=== PATIENT | female | born 1995 | race Caucasian/White ===

== ENCOUNTER 2024-11-14 18:37 | Emergency (ER) | payer OTHER, SELFPAY ==
[2024-11-14 18:42] VITALS: BP 124/79; PULSE 88; RESP 18; TEMP 37; O2SAT 100; BMI 20.5
--- NOTE | 2024-11-14 20:25 | ED.ABDPAIN ---
HPI - Abdominal Pain General Chief Complaint: Abdominal Pain Stated Complaint: Pain in breast Time Seen by Provider: 11/14/24 20:10 History of Present Illness HPI narrative: This 29-year-old female comes in reporting worsening upper epigastric pain. She states that she has had this pain here and there in the past and did benefit from IV omeprazole when in [place]. She has taken oral omeprazole but not consistently and stated that she took 1 tablet recently and it did not help. She reports upper epigastric pain that radiates up into her chest. It seems to come and go. Sometimes it is very severe and other times there is no pain. She does not report any vomiting, diarrhea, fever, or other symptoms. She is otherwise in good health. She arrives here with normal vital signs. Related Data Home Medications ?Medication ?Instructions ?Recorded ?Confirmed omeprazole 20 mg capsule,delayed 20 mg PO DAILY 11/14/24 11/14/24 release Previous Rx's ?Medication ?Instructions ?Recorded pantoprazole 40 mg tablet,delayed 40 mg PO DAILY #20 tabs 11/14/24 release (Protonix) Allergies Allergy/AdvReac Type Severity Reaction Status Date / Time No Known Drug Allergies Allergy Verified 11/14/24 18:53 Review of Systems Status of ROS Reports: 10 or more systems reviewed and unremarkable except as noted in History and below Narrative Constitutional: No fevers, no weight gain or loss. Eyes: No discharge. No vision changes. HENT: No congestion, no sore throat, no ear pain. Cardiovascular: No chest pain, no palpitations. Respiratory: No shortness of breath, no wheezes, no cough. Gastrointestinal: No vomiting, no diarrhea. Upper epigastric abdominal pain that radiates up into the chest. Genitourinary: No dysuria, no hematuria. Musculoskeletal: Normal range of motion. Skin: No rashes, no pruritis. Neurological: No dizziness, weakness, sensory change, speech change. Endo/Heme/Allergies: No bruising or bleeding. No polydipsia. Pysch: no suicidality, no anxiety, no insomnia. All other systems reviewed and are negative. Exam Narrative: Exam Narrative: Constitutional: Well-developed, well-nourished, no acute distress. HEENT: Normocephalic, atraumatic. Neck: Normal range of motion. Nontender. Supple. Heart: Regular. No murmurs. Normal rate. Intact distal pulses. Lungs: Clear to auscultation. No chest discomfort. No wheezes, rhonchi, or rales. Abdomen: Normal bowel sounds. Nontender. No rebound tenderness. Genitalia: Deferred. Back: No midline tenderness. Normal range of motion. Extremities: Normal range of motion. No injury. Skin: Intact. No rash. Warm. No erythema or pallor. Neurologic: No altered sensation. No weakness. Alert and oriented. Psychiatric: No suicidality. No anxiety or depression. No insomnia. Nursing notes and vitals signs are reviewed. Const: Vital Signs, click to edit/add: Vital Signs - 24 hr 11/14/24 18:42 Temperature 98.6 F Pulse Rate [Right Pulse Oximeter] 88 Respiratory Rate 18 Blood Pressure [Ri ght Upper Arm] 124/79 Pulse Oximetry 100 Oxygen Delivery Me thod Room Air Course Vital Signs Vital signs: Initial Vital Signs Temperature 98.6 F 11/14/24 18:42 Temperature Source Temporal Artery Scan 11/14/24 18:42 Pulse Rate 88 11/14/24 18:42 Pulse Rhythm Regular 11/14/24 18:42 Pulse Strength 3+ Normal 11/14/24 18:42 Respiratory Rate 18 11/14/24 18:42 Blood Pressure 124/79 11/14/24 18:42 Blood Pressure Mean 94 11/14/24 18:42 Blood Pressure Position Sitting 11/14/24 18:42 Pulse Oximetry 100 11/14/24 18:42 Oxygen Delivery Method Room Air 11/14/24 18:42 Vital Signs Temperature 98.6 F 11/14/24 18:42 Pulse Rate 88 11/14/24 18:42 Respiratory Rate 18 11/14/24 18:42 Blood Pressure 124/79 11/14/24 18:42 Pulse Oximetry 100 11/14/24 18:42 Oxygen Delivery Method Room Air 11/14/24 18:42 Temperature 98.6 F 11/14/24 18:42 Pulse Rate 88 11/14/24 18:42 Respiratory Rate 18 11/14/24 18:42 Blood Pressure 124/79 11/14/24 18:42 Pulse Oximetry 100 11/14/24 18:42 Oxygen Delivery Method Room Air 11/14/24 18:42 Medications Administered Medications: Discontinued Medications Generic Name Dose Route Start Last Admin Trade Name Freq PRN Reason Stop Dose Admin Lidocaine/Aluminum/Magnesium/Simeth 30 ml 11/14/24 20:24 11/14/24 20:35 Gi Cocktail (Visc Lido/Antacid) 30 Ml PO 11/14/24 20:25 30 ml ONCE ONE Administration MDM - Abdominal Pain MDM Narrative Medical decision making narrative: This patient comes in with upper abdominal pain that is typical of a gastritis or reflux esophagitis. She has benefited from omeprazole in the past but has not taken it recently except for a tablet here and there. She received a GI cocktail here. This brought great relief to her symptoms. She is okay to be discharged home. I did provide a prescription for Protonix. ECG Data Attestation: I personally reviewed and interpreted this ECG as follows: Interpretation: Normal sinus rhythm. Rate is 83 beats per minute. There are no ST or T-wave abnormalities. Discharge Plan Discharge Clinical Impression: GERD (gastroesophageal reflux disease) Patient Disposition: Home, Self-Care Condition: Improved Additional Instructions: Take medication as prescribed. Follow up with MD or return if worsening. Prescriptions: New pantoprazole [Protonix] 40 mg tablet,delayed release (DR/EC) 40 mg PO DAILY Qty: 20 2RF No Action omeprazole 20 mg capsule,delayed release(DR/EC) 20 mg PO DAILY Stand Alone Forms: [employer] ([employer] Info Instructions
[2024-11-14] MEDS: GI COCKTAIL (VISC LIDO/ANTACID) 30 ML PO (20:35)
== END 2024-11-14 21:21 | disposition home or self-care (01) ==
PROVIDERS: Emergency Provider Emergency Medicine Emergency Medical Services
DX: K21.9 Gastro-esophageal reflux disease without esophagitis (principal)
CPT/HCPCS: 99283; 99284; A9270

== ENCOUNTER 2025-07-13 22:15 | Day surgery (SDC) | payer OTHER, SELFPAY ==
[2025-07-13 22:43] VITALS: BP 127/81; PULSE 75; RESP 18; TEMP 36.7; O2SAT 99; BMI 23.3
[2025-07-13 23:01] LABS: Appearance Urine Clear (Clear); Hematocrit* 43.6 % (33.0-51.0); Hemoglobin* 14.2 gm/dL (12.0-16.0); Immature Granulocytes Pct Auto 1.4 %; Mean Corpuscular HGB Conc 33 gm/dL (32-36); Mean Corpuscular Hemoglobin 28 pg (26-34); Mean Corpuscular Volume 87 fL (80-100); RDW Coefficient of Variation % 12.4 % (11.5-15.5); Red Blood Count* 5.00 m/uL (4.00-5.20); White Blood Count* 14.79 K/uL (4.50-11.00)
[2025-07-13 23:06] LABS: Immature Granulocytes Abs Auto 0.20 K/uL (0.00-0.30); Lymphocytes Absolute Auto 3.60 K/uL (0.90-2.90); Slide Review Reflex No
[2025-07-13 23:15] VITALS: O2SAT 99
[2025-07-13 23:20] LABS: Albumin* 4.7 g/dL (3.3-5.0); Chloride* 103 mmol/L (96-114); Potassium* 4.2 mmol/L (3.6-5.1); Sodium* 139 mmol/L (135-149)
[2025-07-13 23:22] LABS: Blood Urea Nitrogen* 14 mg/dL (5-24); Creatinine* 0.7 mg/dL (0.5-1.5); Est. Creatinine Clearance* 115.32; Estimated Glomerular Filt Rate 120 ml/min
[2025-07-13 23:23] LABS: Alanine Aminotransferase* 26 U/L (4-35); Alkaline Phosphatase* 77 U/L (40-150); Anion Gap 7 mEq/L (7-15); Aspartate Amino Transferase* 30 U/L (12-35); Bilirubin Total* 0.3 mg/dL (0.1-1.5); Calcium* 9.5 mg/dL (8.4-10.6); Carbon Dioxide* 29 mmol/L (20-32); Glucose* 110 mg/dL (60-115); HCG Qualitative Serum* Negative (Negative); Total Protein* 8.9 g/dL (6.0-8.3)
--- NOTE | 2025-07-13 23:32 | ED.ABDPAIN ---
HPI - Abdominal Pain General Time Seen by Provider: 23:32 Date Seen: 07/13/25 Chief Complaint: Abdominal Pain Stated Complaint: intense stomach pain Time Seen by Provider: 07/13/25 23:32 Source: patient and waste elimination Mode of arrival: ambulatory Limitations: language barrier History of Present Illness HPI narrative: Santi is a 30-year-old female who presents the emergency department for evaluation of abdominal pain. Patient complains of right upper and mid upper abdominal pain that has been constant since Monday morning. Patient describes the pain as a constant burning pain however reports worsening intensity over the last 4 hours. Patient reports nausea but no vomiting. Denies any fever, chills, chest pain, shortness of breath. Patient denies any diarrhea, dysuria. Patient reports history of similar symptoms in the past. Patient took 1 dose of pantoprazole with no improvement of symptoms, patient has history of appendectomy, section x2. Related Data Home Medications ?Medication ?Instructions ?Recorded ?Confirmed omeprazole 20 mg capsule,delayed 20 mg PO DAILY 11/14/24 07/13/25 release Allergies Allergy/AdvReac Type Severity Reaction Status Date / Time No Known Drug Allergies Allergy Verified 07/13/25 22:45 Review of Systems Narrative Past medical history, past surgical history, medications, allergies, family history, and social history were reviewed with the patient. No additional pertinent items. A medically appropriate review of systems was performed with pertinent positives and negatives noted in HPI, all other systems negative. [facility] Medical History (Updated 07/14/25 @ 02:23 by Radha Galan MD) Gastritis ?K29.70 - Gastritis, unspecified, without bleeding (ICD-10) Social History Smoking Status: Never smoker Second hand tobacco smoke exposure: No How often do you have a drink containing alcohol: never AUDIT-C Alcohol total score: 0 Non-prescribed substance use: denies use Exam Narrative: Exam Narrative: General: Afebrile, in distress secondary to pain HEENT: Normocephalic, atraumatic, conjunctiva normal. MMM Neck: non-tender, supple Cardio: regular rate. regular rhythm Resp: Normal work of breathing, no respiratory distress, lungs clear bilaterally, no wheezing, rhonchi, rales Chest/Back: no visual signs of trauma, no midline tenderness, no CVA tenderness Abdomen: soft, non distension, tenderness to palpation right upper quadrant, epigastric region with no rebound, no guarding,no peritoneal signs Neuro: alert and fully oriented. CN II-XII grossly intact. Grossly normal strength and sensation in all extremities. MSK: no deformities. Normal range of motion Integumentary/Skin: no rash visualized, normal color Psych: normal affect, normal behavior Const: Vital Signs, click to edit/add: Vital Signs - 24 hr 07/13/25 22:43 07/13/25 23:15 07/14/25 00:22 Temperature 98.1 F 98.1 F Pulse Rate Pulse Rate [Right Pulse Oximeter] 75 85 Respiratory Rate 18 18 Blood Pressure Blood Pressure [Ri ght Upper Arm] 127/81 112/76 Pulse Oximetry 99 99 99 Oxygen Delivery Me thod Room Air Room Air 07/14/25 02:00 Temperature 98.5 F Pulse Rate 95 Pulse Rate [Right Pulse Oximeter] Respiratory Rate 20 Blood Pressure 115/74 Blood Pressure [Ri ght Upper Arm] Pulse Oximetry 99 Oxygen Delivery Me thod Course Vital Signs Vital signs: Initial Vital Signs Temperature 98.1 F 07/13/25 22:43 Temperature Source Temporal Artery Scan 07/13/25 22:43 Pulse Rate 75 07/13/25 22:43 Respiratory Rate 18 07/13/25 22:43 Blood Pressure 127/81 07/13/25 22:43 Blood Pressure Mean 96 07/13/25 22:43 Blood Pressure Position Sitting 07/13/25 22:43 Pulse Oximetry 99 07/13/25 22:43 Oxygen Delivery Method Room Air 07/13/25 22:43 Vital Signs Temperature 98.1 F 07/13/25 22:43 Pulse Rate 75 07/13/25 22:43 Respiratory Rate 18 07/13/25 22:43 Blood Pressure 127/81 07/13/25 22:43 Pulse Oximetry 99 07/13/25 22:43 Oxygen Delivery Method Room Air 07/13/25 22:43 Temperature 98.5 F 07/14/25 03:14 Pulse Rate 85 07/14/25 03:14 Respiratory Rate 20 07/14/25 03:14 Blood Pressure 112/76 07/14/25 03:14 Pulse Oximetry 99 07/14/25 02:00 Oxygen Delivery Method Room Air 07/14/25 00:22 Medications Administered Medications: Discontinued Medications Generic Name Dose Route Start Last Admin Trade Name Freq PRN Reason Stop Dose Admin Piperacillin Sod/Tazobactam 100 mls @ 200 mls/hr 07/14/25 02:09 07/14/25 02:31 Sod 4.5 gm/ Sodium Chloride IVPB 07/14/25 02:10 200 mls/hr ONCE ONE Administration Sodium Chloride 1,000 mls @ 125 mls/hr 07/14/25 02:15 07/14/25 02:25 0.9 % Sodium Chloride 1000 Ml IV 125 mls/hr .Q8H ELVI Administration Lidocaine/Aluminum/Magnesium/Simeth 30 ml 07/14/25 00:15 07/14/25 00:19 Gi Cocktail (Visc Lido/Antacid) 30 Ml PO 07/14/25 00:16 30 ml ONCE ONE Administration MDM - Abdominal Pain MDM Narrative Medical decision making narrative: Santi is a 30-year-old female who presents the emergency department for evaluation of abdominal pain. upon arrival patient is nontoxic appearing, afebrile, in distress secondary to pain. Patient hemodynamically stable vital signs within normal limits. Differential diagnosis includes but is not limited to gastritis versus gastroenteritis versus pancreatitis versus cholecystitis versus biliary colic versus colitis among others. Patient reports history of appendectomy and section x2. Upon arrival patient was treated with GI cocktail, comprehensive labs performed. I reviewed comprehensive labs which are remarkable for leukocytosis with white blood cell count of 14.7, hemoglobin 14.2, no acute metabolic or electrolyte abnormality, no significant transaminitis, normal bilirubin, normal lipase, negative test, urinalysis with no evidence of acute infection. Given patient's leukocytosis as well as right upper quadrant/ epigastric pain right upper quadrant ultrasound performed. I personally reviewed and interpreted right upper quadrant ultrasound which demonstrates cholelithiasis with findings suspicious for acute cholecystitis with gallbladder wall thickening, trace pericholecystic fluid. On re-evaluation patient does report improvement of symptoms after GI cocktail however still is tender to palpation in epigastric region or right upper quadrant. Given patient's abdominal pain, leukocytosis, ultrasound findings I discussed patient management general surgeon Dr. Butterfield who agrees with admission to Medicine for laparoscopic cholecystectomy later today. Patient made NPO, maintenance IV fluids, Zosyn. I discussed patient management with hospitalist who agrees with admission. Patient understands and agrees the plan. Medical Records Attestation: I reviewed the patient's medical records. Lab Data Attestation: I reviewed the patient's lab results. Labs: Lab Results 07/13/25 Range/Units 22:58 WBC 14.79 H (4.50-11.00) K/uL RBC 5.00 (4.00-5.20) m/uL Hgb 14.2 (12.0-16.0) gm/dL Hct 43.6 (33.0-51.0) % MCV 87 (80-100) fL MCH 28 (26-34) pg MCHC 33 (32-36) gm/dL RDW Coeff of Vikash 12.4 (11.5-15.5) % Plt Count 287 (140-440) K/uL Neut % (Auto) 66.8 (42.0-72.0) % Lymph % (Auto) 24.6 (20-44) % [place] % (Auto) 5.7 (0.0-11.0) % Eos % (Auto) 1.2 (0.0-7.0) % Baso % (Auto) 0.3 (0.0-3.0) % Neut # (Auto) 9.90 H (1.7-7.0) K/uL Lymph # (Auto) 3.60 H (0.90-2.90) K/uL [place] # (Auto) 0.80 (0.00-0.90) K/UL Eos # (Auto) 0.20 (0.00-0.50) K/uL Baso # (Auto) 0.00 (0.00-0.30) K/uL Abs Immat Gran (auto) 0.20 (0.00-0.30) K/uL Imm/Tot Granulo (auto) 1.4 % Sodium 139 (135-149) mmol/L Potassium 4.2 (3.6-5.1) mmol/L Chloride 103 (96-114) mmol/L Carbon Dioxide 29 (20-32) mmol/L Anion Gap 7 (7-15) mEq/L BUN 14 (5-24) mg/dL Creatinine 0.7 (0.5-1.5) mg/dL Estimated Creat Clear 115.32 Estimated GFR 120 ml/min Glucose 110 (60-115) mg/dL Calcium 9.5 (8.4-10.6) mg/dL Total Bilirubin 0.3 (0.1-1.5) mg/dL AST 30 (12-35) U/L ALT 26 (4-35) U/L Alkaline Phosphatase 77 (40-150) U/L Total Protein 8.9 H (6.0-8.3) g/dL Albumin 4.7 (3.3-5.0) g/dL Lipase 150 (23-300) U/L HCG, Qual Negative (Negative) Urine Color Yellow (Yellow) Urine Appearance Clear (Clear) Urine pH 6.0 (5.0-8.5) Ur Specific [place] 1.025 (1.000-1.030) Urine Protein Negative (Negative) Urine Glucose (UA) Negative (Negative) Urine Ketones Negative (Negative) Urine Blood Negative (Negative) Urine Nitrite Negative (Negative) Urine Bilirubin Negative (Negative) Urine Urobilinogen 0.2 (0.2-1.0) Ur Leukocyte Esterase Negative (Negative) Urine RBC 0-2 (0-2) Urine WBC 0-2 (0-5) Ur Squamous Epith Cells None (None-Few) Urine Bacteria None (None) Imaging Data US - abdomen: Attestation: I have reviewed the pertinent imaging results. Radiologist's impression: Patient: Santi Dodson MR#: [id number] : 1995 Acct:[id number] Lc: ED Service Date: 07/14/[address]: Ordering Physician: Radha Galan M.D. Date of Service: 07/14/25 Procedure(s): US gallbladder Accession Number(s): [id number] cc: Radha Galan M.D.; Provider,Not a Local~ For Patients: As a result of the Century Cures Act, medical imaging exams and procedure reports are released immediately into your electronic medical record. You may view this report before your referring provider. If you have questions, please contact your health care provider. INDICATION: Right upper quadrant and epigastric abdomen pain. TECHNIQUE: Ultrasound abdomen limited. Sonographic images of the right upper quadrant were obtained using wilcox-scale and color Doppler images. COMPARISON: None. FINDINGS: Liver: Visualized portions grossly within normal limits. Gallbladder: Multiple gallstones noted. Gallbladder wall thickening, measuring 5 mm with trace pericholecystic fluid. Negative sonographic Crow`s sign. Common bile duct: 6 mm. IMPRESSION: Cholelithiasis with findings suspicious for acute cholecystitis including gallbladder wall thickening and trace pericholecystic fluid. Dictated by Devan Rangel MD @ 07/14/2025 1:49:48 AM Discharge Plan Discharge Clinical Impression: Acute cholecystitis Patient Disposition: Admitted As Observation Condition: Stable
[2025-07-14] VITALS (19 sets, daily range): BP systolic 110–127; BP diastolic 63–83; PULSE 56–99; RESP 12–24; TEMP 36.4–37.1; O2SAT 94–100
--- NOTE | 2025-07-14 00:15 | CRLHL7_ITS ---
For Patients: As a result of the Century Cures Act, medical imaging exams and procedure reports are released immediately into your electronic medical record. You may view this report before your referring provider. If you have questions, please contact your health care provider. INDICATION: Right upper quadrant and epigastric abdomen pain. TECHNIQUE: Ultrasound abdomen limited. Sonographic images of the right upper quadrant were obtained using wilcox-scale and color Doppler images. COMPARISON: None. FINDINGS: Liver: Visualized portions grossly within normal limits. Gallbladder: Multiple gallstones noted. Gallbladder wall thickening, measuring 5 mm with trace pericholecystic fluid. Negative sonographic Crow`s sign. Common bile duct: 6 mm. IMPRESSION: Cholelithiasis with findings suspicious for acute cholecystitis including gallbladder wall thickening and trace pericholecystic fluid. Dictated by Devan Rangel MD @ 07/14/2025 1:49:48 AM (Electronically Signed)
[2025-07-14] MEDS: GI COCKTAIL (VISC LIDO/ANTACID) 30 ML PO (00:19)
[2025-07-14] MEDS: PIPERACILLIN/TAZOBACTAM 4.5 GM in 0.9 % SODIUM CHLORIDE Mini-bag 100 ML IVPB ×2 (02:31→09:58)
--- NOTE | 2025-07-14 03:27 | W.PM.THH&P_ITS ---
Telehealth- H&P: HPI History of Present Illness Date Seen: 07/14/25 Chief complaint: intense stomach pain Narrative: Santi Garcia is seen as an Interactive Telehealth visit. Santi Garcia is a 30 year old male who has medical history of appendectomy, sections times. On arrival to ER vitals are stable, presented to ER with complaint of abdominal pain. On my encounter patient is alert oriented x 4 reports started having epigastric/mid upper abdomen pain for past 2 days. She reports having on and off pain which is more persistent for past few hours. Pain is initially was in moderate intensity now tolerable after given pain medication in ER. Reports having nausea but denies vomiting, fever, chill, chest pain, shortness of breath, dysuria, diarrhea. AST/ALT/lipase within normal limit, UA negative leukocyte and nitrate, white blood cell 14.79, u ltrasound gallbladder cholelithiasis with findings suspicious for acute cholecystitis. Empiric IV Zosyn given in ER. General surgery consulted planning for surgery in AM. Review of Systems Status of ROS: Reports: 10 or more systems reviewed and unremarkable except as noted in History and below [facility] Medical History (Updated 07/14/25 @ 02:23 by Radha Galan MD) Gastritis ?K29.70 - Gastritis, unspecified, without bleeding (ICD-10) Social History Smoking Status: Never smoker Second hand tobacco smoke exposure: No How often do you have a drink containing alcohol: never AUDIT-C Alcohol total score: 0 Non-prescribed substance use: denies use Meds Home Medications and Allergies Home Medications ?Medication ?Instructions ?Recorded ?Confirmed ?Type omeprazole 20 mg capsule,delayed 20 mg PO DAILY 07/13/25 History release Allergies Allergy/AdvReac Type Severity Reaction Status Date / Time No Known Drug Allergies Allergy Verified 07/13/25 22:45 Exam Narrative Exam Narrative: Physical Exam GENERAL: ?vital signs reviewed, well developed and nourished, in no distress HEENT: pupils are equal round and reactive to light, extraocular movements are grossly within normal limits and oral mucosa is moist. NECK: Supple without lymphadenopathy or thyromegaly according to nursing staff examination observation HEART: Regular rate and rhythm without any rubs, murmurs, or gallops. LUNGS: Clear to auscultation bilaterally with good air movement throughout ABDOMEN: Observation from nurse assisted exam, abdomen appears soft, nontender, and nondistended with Positive bowel sounds noted. EXTREMITIES: Strength and sensation is observed to be grossly within normal limits in the upper and lower extremities.? No focal strength deficit is observed. SKIN:? Observed warm and dry with color normal Const Vital Signs, click to edit/add: Vital Signs - 24 hr 07/13/25 22:43 07/13/25 23:15 07/14/25 00:22 Temperature 98.1 F 98.1 F Pulse Rate Pulse Rate [Right Pulse Oximeter] 75 85 Respiratory Rate 18 18 Blood Pressure Blood Pressure [Right Upper Arm] 127/81 112/76 Pulse Oximetry 99 99 99 Oxygen Delivery Method Room Air Room Air 07/14/25 02:00 07/14/25 03:14 Temperature 98.5 F 98.5 F Pulse Rate 95 Pulse Rate [Right Pulse Oximeter] 85 Respiratory Rate 20 20 Blood Pressure 115/74 Blood Pressure [Right Upper Arm] 112/76 Pulse Oximetry 99 Oxygen Delivery Method Common normals: no apparent distress and oriented x3 HENMT Common normals: normocephalic and head/scalp atraumatic Head and scalp: normocephalic and atraumatic Eye Common normals: PERRL Pupil: PERRL Neck & C-Spine Common normals: full ROM and no JVD Chest Common normals: inspection of chest normal Resp Common normals: normal respiratory effort, no use of accessory muscles and clear to auscultation bilaterally Auscultation: clear to auscultation bilaterally Cardio Common normals: no JVD, regular rate, regular rhythm, S1 normal heart sound and S2 normal heart sound Rate: regular rate Rhythm: regular rhythm Heart sounds: S1 normal and S2 normal GI Common normals: Normal to inspection, nondistended, normoactive bowel sounds present Inspection: normal to inspection Palpation: tender (Epigastric/ RUQ tedneress ) Extremity Common normals: normal to inspection and full ROM Neuro Common normals: oriented x3, CN's II-XII intact bilaterally, moves all extremities, no focal motor deficits and no sensory deficits noted Hospitalist - H&P: Result Labs Labs: Short CBC 07/13/25 Range/Units 22:58 WBC 14.79 H (4.50-11.00) K/uL Hgb 14.2 (12.0-16.0) gm/dL Hct 43.6 (33.0-51.0) % Plt Count 287 (140-440) K/uL BMP 07/13/25 22:58 Sodium 139 Potassium 4.2 Chloride 103 Carbon Dioxide 29 BUN 14 Creatinine 0.7 Glucose 110 Calcium 9.5 Liver Function 07/13/25 Range/Units 22:58 Total Bilirubin 0.3 (0.1-1.5) mg/dL AST 30 (12-35) U/L ALT 26 (4-35) U/L Alkaline Phosphatase 77 (40-150) U/L Albumin 4.7 (3.3-5.0) g/dL Urine 07/13/25 Range/Units 22:58 Urine Color Yellow (Yellow) Urine Appearance Clear (Clear) Urine pH 6.0 (5.0-8.5) Ur Specific [place] 1.025 (1.000-1.030) Urine Protein Negative (Negative) Urine Glucose (UA) Negative (Negative) Assessment and Plan Assessment and plan (1) Acute cholecystitis: Status: Acute Plan 30 female with medical history of appendectomy, sections times. On a rrival to ER vitals are stable, presented to ER with complaint of abdominal pain. Admitted for acute cholecystitis. #Acute cholecystitis Ultrasound abdomen concerning for acute cholecystitis, general surgery consulted plan is for surgery in AM. NPO. Started on normal saline 0.9% 100 mL/h. Empirically started on IV Zosyn 4.5 g every 8 hourly. Pain management. DVT prophylaxis Lovenox subcu daily from tomorrow since patient may require surgery today. Telemedicine Statement: 1 Service was provided using HIPAA compliant platform for audio/visual equipment. 2 Patient location: [place] 3 Provider location: [place] 4 Participants configuration management administrator: Bedside RN, patient 5 Consent was obtained and the patient was seen with nurse assisting at the bedside. Anticipated length of stay: I anticipate the patient requires hospital level of care for at least < 2 midnights/observation or longer based on the complexity of the patient's medical illness acute cholecystitis which includes the need for IV antibiotic and surgery that cannot be done at a lower level of care no other than inpatient management Consent: - Patient?s identity was confirmed. - Medical condition or illness was discussed with the patient/personal cash application representative. - Current proposed treatment for medical condition or illness was explained to patient/personal cash application representative along with the likely benefits, significant risks and complications associated with the treatment. - The patient/personal cash application representative verbally authorized treatment to be provided by audio/video, which may include a limited review of patient?s current health status, medication or other treatment recommendations, patient education and an opportunity to ask questions about condition and treatment. - I have reviewed all available old records and data - Verbal Consent granted: Yes I spent total of 64 minutes providing care to this patient which includes time for face to face visit via telemedicine, review of medical records, imaging studies and discussion of findings with providers, the patient . Telehealth: Statement Statement Telehealth Visit: Today's History and Physical is provided via interactive telehealth by Anne Gonzalez MD.? Patient is located at [facility].? Provider is located at [facility].? Nursing staff assisted with the patient's exam. The visit being done today meets criteria for a telehealth visit and the patient or patient?s parent/guardian is aware the visit is a telehealth visit.
--- NOTE | 2025-07-14 06:52 | PC.NURSE ---
End of shift report: Pt arrived?to?the floor at?0253. 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 Pleasant and cooperative. VSS. Afebrile.?NPO. Denies pain. Denies nausea. Ind in room, call light within reach.?
--- NOTE | 2025-07-14 07:42 | PM.GSCN ---
History of Present Illness Consult details Date Seen: 07/14/25 Consult date: 07/14/25 Narrative: The patient is a 30-year-old female who presented to the emergency department overnight with right upper and mid abdominal pain which started yesterday morning. She states that at 1st the pain was somewhat mild and located in her epigastric region. Over the course of the day, the pain became worse and so she came in to be seen. She has been nauseated and did vomit when she tried to eat. She denies fever, chills or chest pain but states that it is difficult to take a deep breath. She has had diarrhea alternating with constipation in the past several days. She has had similar symptoms in the past and thought this to be gastritis. She usually takes pantoprazole which tends to help. She was seen in the ER for similar symptoms back in October. She states that a GI cocktail did help. Symptoms have been escalating in the past year and she states she will have symptoms approximately once a month. This is the most severe. She tried pantoprazole at home however this did not help. Pain medication helps. [facility] Medical History (Updated 07/14/25 @ 07:44 by Marci Rivera MD) GERD (gastroesophageal reflux disease) ?K21.9 - Gastro-esophageal reflux disease without esophagitis (ICD-10) Gastritis ?K29.70 - Gastritis, unspecified, without bleeding (ICD-10) Surgical History (Updated 07/14/25 @ 07:44 by Marci Rivera MD) H/O: section ?Z98.891 - History of uterine scar from previous surgery (ICD-10) History of appendectomy ?Z90.49 - Acquired absence of other specified parts of digestive tract (ICD-10) Social History What is your current living situation?: I presently have a place to live Problems where you live: no known problems Problems where you live details: n/a In the past 12 months, utilities in danger of being shut off: no In past 12 months, lack of transportation kept you from medical appts, meetings, work, or getting things needed for daily living: no In the past 12 mos, have been you worried that your food would run out before you had money to buy more?: never true In the past 12 mos, the food you bought just didn't last and you didn't have money to buy more?: never true Highest level of school completed/degree received: Associate degree: occupational, technical, vocational program Smoking Status: Never smoker Second hand tobacco smoke exposure: No How often do you have a drink containing alcohol: never AUDIT-C Alcohol total score: 0 Non-prescribed substance use: marijuana (any form) Non-prescribed substance use details: pt states she smokes marijuana How often does anyone, including family, friends and others, physically hurt you: never How often does anyone, including family, friends and others, insult or talk down to you: never How often does anyone, including family, friends and others, threaten you with harm: never How often does anyone, including family, friends and others, scream or curse at you: never Meds Home Medications and Allergies Home Medications ?Medication ?Instructions ?Recorded ?Confirmed ?Type omeprazole 20 mg capsule,delayed 20 mg PO DAILY 11/14/24 07/13/25 History release Allergies Allergy/AdvReac Type Severity Reaction Status Date / Time No Known Drug Allergies Allergy Verified 07/13/25 22:45 Exam Narrative: Exam Narrative: General appearance: Alert, cooperative, and in no distress Eyes: PERRLA, eye lids clear, and sclera white HENT Head: Normocephalic Ears: External ears normal Pulmonary: Breathing nonlabored on room air Cardiovascular Heart: Regular rate Extremities: warm and well perfused Gastrointestinal Abdominal: No upper abdominal scars. Abdomen is soft. She is tender in epigastric region just to the right of midline with a positive Crow sign. Otherwise no other abdominal tenderness. No guarding or rebound. Musculoskeletal: Extremities: Upper: Both upper extremities have normal joint range of motion and intact strength. Lower: Both lower extremities have normal joint range of motion and intact strength. Skin: Normal skin color, texture, and turgor. Neurologic: No focal deficits Psychiatric: Alert, oriented, cooperative, normal affect. Const: Vital Signs, click to edit/add: Vital Signs - 24 hr 07/13/25 22:43 07/13/25 23:15 07/14/25 00:22 Temperature 98.1 F 98.1 F Pulse Rate Pulse Rate [Left P ulse Oximeter] Pulse Rate [Right Pulse Oximeter] 75 85 Respiratory Rate 18 18 Blood Pressure Blood Pressure [Ri ght Arm] Blood Pressure [Ri ght Upper Arm] 127/81 112/76 Pulse Oximetry 99 99 99 Oxygen Delivery Me thod Room Air Room Air 07/14/25 02:00 07/14/25 02:53 07/14/25 02:53 Temperature 98.5 F 98.4 F Pulse Rate 95 Pulse Rate [Left P ulse Oximeter] 82 Pulse Rate [Right Pulse Oximeter] Respiratory Rate 20 16 16 Blood Pressure 115/74 Blood Pressure [Ri ght Arm] 113/69 Blood Pressure [Ri ght Upper Arm] Pulse Oximetry 99 100 100 Oxygen Delivery Me thod Room Air Room Air 07/14/25 03:14 Temperature 98.5 F Pulse Rate Pulse Rate [Left P ulse Oximeter] Pulse Rate [Right Pulse Oximeter] 85 Respiratory Rate 20 Blood Pressure Blood Pressure [Ri ght Arm] Blood Pressure [Ri ght Upper Arm] 112/76 Pulse Oximetry Oxygen Delivery Me thod Results Labs Labs: Abnormal lab results 07/13/25 Range/Units 22:58 WBC 14.79 H (4.50-11.00) K/uL Neut # (Auto) 9.90 H (1.7-7.0) K/uL Lymph # (Auto) 3.60 H (0.90-2.90) K/uL Total Protein 8.9 H (6.0-8.3) g/dL Diabetes panel 07/13/25 Range/Units 22:58 Sodium 139 (135-149) mmol/L Potassium 4.2 (3.6-5.1) mmol/L Chloride 103 (96-114) mmol/L Carbon Dioxide 29 (20-32) mmol/L BUN 14 (5-24) mg/dL Creatinine 0.7 (0.5-1.5) mg/dL Glucose 110 (60-115) mg/dL Calcium 9.5 (8.4-10.6) mg/dL AST 30 (12-35) U/L ALT 26 (4-35) U/L Alkaline Phosphatase 77 (40-150) U/L Total Protein 8.9 H (6.0-8.3) g/dL Albumin 4.7 (3.3-5.0) g/dL Calcium panel 07/13/25 Range/Units 22:58 Calcium 9.5 (8.4-10.6) mg/dL Albumin 4.7 (3.3-5.0) g/dL Pituitary panel 07/13/25 Range/Units 22:58 Sodium 139 (135-149) mmol/L Potassium 4.2 (3.6-5.1) mmol/L Chloride 103 (96-114) mmol/L Carbon Dioxide 29 (20-32) mmol/L BUN 14 (5-24) mg/dL Creatinine 0.7 (0.5-1.5) mg/dL Glucose 110 (60-115) mg/dL Calcium 9.5 (8.4-10.6) mg/dL Adrenal panel 07/13/25 Range/Units 22:58 Sodium 139 (135-149) mmol/L Potassium 4.2 (3.6-5.1) mmol/L Chloride 103 (96-114) mmol/L Carbon Dioxide 29 (20-32) mmol/L BUN 14 (5-24) mg/dL Creatinine 0.7 (0.5-1.5) mg/dL Glucose 110 (60-115) mg/dL Calcium 9.5 (8.4-10.6) mg/dL Total Bilirubin 0.3 (0.1-1.5) mg/dL AST 30 (12-35) U/L ALT 26 (4-35) U/L Alkaline Phosphatase 77 (40-150) U/L Total Protein 8.9 H (6.0-8.3) g/dL Albumin 4.7 (3.3-5.0) g/dL All other labs normal. Imaging Abdominal ultrasound report/results: report reviewed and image reviewed Additional studies: Abdominal ultrasound, 07/14/2025: INDICATION: Right upper quadrant and epigastric abdomen pain. TECHNIQUE: Ultrasound abdomen limited. Sonographic images of the right upper quadrant were obtained using wilcox-scale and color Doppler images. COMPARISON: None. FINDINGS: Liver: Visualized portions grossly within normal limits. Gallbladder: Multiple gallstones noted. Gallbladder wall thickening, measuring 5 mm with trace pericholecystic fluid. Negative sonographic Crow`s sign. Common bile duct: 6 mm. IMPRESSION: Cholelithiasis with findings suspicious for acute cholecystitis including gallbladder wall thickening and trace pericholecystic fluid. Dictated by Devan Rangel MD @ 07/14/2025 1:49:48 AM Progress Note:A&P Assessment and plan (1) Acute cholecystitis: Status: Acute Plan The patient is a 30-year-old female with acute cholecystitis. I explained that the treatment for this is laparoscopic cholecystectomy. We discussed the procedure as well as risks and benefits of surgery which include bleeding, infection, bile leak, conversion to open or injury to other structures, specifically the common bile duct. We also discussed recovery. She is agreeable to proceed and we will plan on surgery this morning.
[2025-07-14] MEDS: OMEPRAZOLE 20 MG CAPSULE DR PO (08:30)
--- NOTE | 2025-07-14 10:40 | PM.GSPRC ---
Operative Note Date of procedure: 07/14/25 Pre-op diagnosis: Acute cholecystitis Post-op diagnosis: Same Type of Procedure: Laparoscopic cholecystectomy Indications: The patient is a 30-year-old female who presented to the emergency department with severe epigastric pain. She was found to have cholecystitis with an elevated white blood cell count. I recommended cholecystectomy and after discussion of risks and benefits she agreed to proceed. Procedure Description: After discussing the risks and benefits of the procedure, the patient signed informed consent.? The operative site was marked and the patient was brought to the operating room and placed on the operating table in supine position.? Care was taken to pad the patient's pressure points.?? The patient was then intubated by anesthesia.?? The operative site was then prepped and draped in the usual sterile fashion.? A time-out was then performed. Entrance to the abdomen was gained via a 5 mm Visiport in the left upper quadrant. The abdomen was insufflated and briefly surveyed for signs of injury. There was none. A 10 mm umbilical port was placed as well as 2 working ports along the right costal margin, all under direct vision. The patient was then placed in reverse Trendelenburg position with the right side up. The gallbladder fundus was grasped and retracted cephalad. A small amount of dissection was needed to free omental adhesions from the gallbladder. The infundibulum was grasped. A combination of hook cautery and blunt dissection was used to carefully dissect out the cystic duct and artery until they could clearly be seen entering the gallbladder without any intervening structures. The tissue was edematous, indicating cholecystitis. The gallbladder was dissected off the cystic plate to achieve the critical view. Once this was achieved the cystic duct and artery were each clipped with 2 clips proximally and 1 clip distally and transected with the scissors. The gallbladder was then taken off of the liver bed and removed from the abdomen using an Endo-Catch bag. A small bleeding vessel along the serosal edge was clipped for hemostasis. The gallbladder bed was surveyed for hemostasis which appeared adequate. A small amount of bile which had spilled was suctioned from the abdomen. The ports were then removed and the abdomen desufflated. The umbilical port fascia was closed with 0 Vicryl. The skin was closed with absorbable subcuticular suture. Sterile dressings were applied. Instrument sponge and needle counts were correct at the end of the case. The patient was then woken and transferred to the PACU in stable condition. ? The patient tolerated the procedure well. Findings: Inflamed gallbladder with gallstones indicative of acute calculous cholecystitis Surgeon: Marci Rivera MD Estimated blood loss (mL): 25 Specimen: Gallbladder Condition: stable Disposition: PACU
[2025-07-14] MEDS: LACTATED RINGERS 1000 ML 1,000 ML 75 ML IV (11:45)
[2025-07-14] MEDS: BUPIVACAINE 0.25% 30 ML INJECTION (12:00)
--- NOTE | 2025-07-14 12:43 | P.ANES_ITS ---
Anesthesia Charges Start Date/Time Anesthesia Start Date: 07/14/25 Anesthesia Start Time: 11:26 Stop Date/Time Anesthesia Stop Date: 07/14/25 Anesthesia Stop Time: 12:41 Coding CPT Codes CPT Codes: ANESTH SURG UPPER ABDOMEN - 61835 ([id number]) P2 - PATIENT W/MILD SYST DISEASE, QZ - DECISION SCIENCE ANALYST SVC W/O GENERATING PLANT SUPERINTENDENT BY
--- NOTE | 2025-07-14 12:43 | W.ANESCHARGE ---
Anesthesia Charges Start Date/Time Anesthesia Start Date: 07/14/25 Anesthesia Start Time: 11:26 Stop Date/Time Anesthesia Stop Date: 07/14/25 Anesthesia Stop Time: 12:41 Coding CPT Codes CPT Codes: ANESTH SURG UPPER ABDOMEN - 62383 ([id number]) P2 - PATIENT W/MILD SYST DISEASE, QZ - CLEANER TOUCH UP WORKER SVC W/O SUPERVISOR FURNACE ROOM BY
--- NOTE | 2025-07-14 13:33 | SUR.PHASEI ---
Patient meets discharge criteria from PACU
[2025-07-14] MEDS: HYDROCODONE-ACETAMIN 5-325 MG 1 TAB PO (13:45)
== END 2025-07-14 15:47 | disposition home or self-care (01) ==
LOC: ED 07-14 02:23 → MEDSURG 07-14 05:34 → OR 07-14 11:33 → MEDSURG 07-14 11:33 → OR 07-14 14:09
PROVIDERS: Emergency Provider Emergency Medicine; Visit Provider Surgery
PROC: 0FT44ZZ Resection of Gallbladder, Percutaneous Endoscopic Approach (ICD-10-PCS; CPT 47562; principal; 2025-07-14 11:15)
DX: K80.00 Calculus of gallbladder with acute cholecystitis without obstruction (principal); R10.13 Epigastric pain; K21.9 Gastro-esophageal reflux disease without esophagitis
CPT/HCPCS: 47562; 00790; 36415; 76705; 80053; 81001; 83690; 84703; 85025; 94761; 99285; A9270; G0378; J0665; J1100; J1171; J1630; J1885; J2405; J2543; J2704; J2710; J3010; J7030; J7120